=== PATIENT | female | born 1975 | race African-American/Black ===

== ENCOUNTER 2017-11-18 12:55 | Emergency (ER) | payer OTHER ==
[~2017-11-18] VITALS: Ht 162.6 cm; Wt 72.6 kg
[~2017-11-18 12:55] MED LIST: AMLODIPINE BESY10 MG PO; AMOXICILLIN500 M1 PO; CHLORTHALIDONE25 MG; HUMALOG100 UNIT/2; HYDROCODON-ACE1 EAC7 PO; METFORMIN HCL500 MG; NOVOLOG100 UNIT/1; TESSALON PERLE100 MG PO; TRAZODONE HCL100 MG; ZESTRIL2.5 MG
[2017-11-18] MEDS ORDERED: CARVEDILOL12.5 MG PO (13:03)
[2017-11-18] MEDS ORDERED: ALDACTONE25 MG PO (13:04)
[2017-11-18 13:21] LABS: ABSOLUTE BASOPHILS 0.1 thou/uL (0.0-0.2); ABSOLUTE LYMPHOCYTES 2.3 thou/uL (0.8-5.3); ABSOLUTE MONOCYTES 0.6 thou/uL (0.0-1.2); ABSOLUTE NEUTROPHILS 5.7 thou/uL (1.6-8.1); BASOPHILS 1.2 %; EOSINOPHILS 0.4 %; HEMATOCRIT 35.5 % (37.0-47.0); HEMOGLOBIN 11.8 gm/dL (12.0-15.0); LYMPHOCYTES 26.2 %; MCH 29.4 pg (26.0-34.0); MCHC 33.1 g/dL (28.0-37.0); MCV 88.6 fL (80.0-100.0); MONOCYTES 7.3 %; MPV 8.1 fl. (7.2-11.1); NUCLEATED RBCS 0 /100WBC; PLATELET COUNT* 281 thou/uL (150-400); POLYS 64.9 %; RBC 4.01 mil/uL (4.20-5.00); WBC 8.8 thou/uL (4.0-11.0)
[2017-11-18 13:30] LABS: ANION GAP 12 mmol/L (7-16); BUN 12 mg/dL (7-18); CALCIUM 8.6 mg/dL (8.5-10.1); CHLORIDE 103 mmol/L (98-107); CO2 24 mmol/L (21-32); CREATININE 1.1 mg/dL (0.6-1.3); GLUCOSE 232 mg/dL (70-99); POTASSIUM 4.1 mmol/L (3.5-5.1); SODIUM 139 mmol/L (136-145)
[2017-11-18 13:40] LABS: ALBUMIN 3.3 g/dL (3.4-5.0); ALKALINE PHOSPHATASE 113 U/L (46-116); LIPASE 197 U/L (73-393); NT-PRO BRAIN NAT PEPTIDE 110 pg/mL (<300); SGOT 11 U/L (15-37); SGPT 14 U/L (30-65); TOTAL BILIRUBIN 0.3 mg/dL (<0.1-1.0); TOTAL PROTEIN 7.7 g/dL (6.4-8.2); TROPONIN-I LEVEL <0.06 ng/mL (<0.06)
[2017-11-18] MEDS ORDERED: NORCO 5-325 TA1 EAC1 PO (13:55)
[2017-11-18] MEDS ORDERED: FLEXERIL PO (13:55)
[2017-11-18 14:47] VITALS: BP 119/72
--- NOTE | 2017-11-18 16:32 | EKG ---
[place] [address] ELECTROCARDIOGRAM REPORT Name: LARISSA LONDON Room: [facility] [place]#: [id number] Admission: 11/18/17 Attend Phys: Discharge: 11/18/17 Date of : 77 Report #: [id number] THIS REPORT FOR: //name// [facility] ED Test Date: 2017-11-18 Test Time: 13:22:08 Pat Name: LARISSA LONDON Department: Room: Gender: F [employer]: ELIANA : 1975 Requested By: Mayra Worthy Order Number: [id number] MD: Darius Collazo Measurements Intervals [place] Rate: 92 P: 67 OK: 171 QRS: 37 QRSD: 86 T: 9 QT: 350 QTc: 433 Interpretive Statements Sinus rhythm Consider left ventricular hypertrophy Baseline wander in lead(s) V5 Compared to ECG 10/10/2015 03:43:08 T-wave abnormality no longer present Electronically Signed On 11-18-2017 16:32:35 CDT by Darius Collazo [email or web address] <ELECTRONICALLY SIGNED> By: Darius Collazo MD, [facility] 11/18/17 1632 1322 132 Darius Collazo MD, [facility] /EPI
== END 2017-11-18 14:51 | disposition home or self-care (01) ==
LOC: M.ERS 12:55
PROVIDERS: Nurse Practitioner
DX: M94.0 Chondrocostal junction syndrome [Tietze] (principal); I11.0 Hypertensive heart disease with heart failure; I50.9 Heart failure, unspecified; E11.9 Type 2 diabetes mellitus without complications; Z79.4 Long term (current) use of insulin